=== PATIENT | male | born 1955 | race Caucasian/White ===

== ENCOUNTER → 2016-07-29 | Outpatient (CLI) | payer OTHER | LOC: FIMAGING 07:09 | PROVIDERS: ATTEND Internal Medicine Nephrology | DX: I15.0 Renovascular hypertension (principal); R94.4 Abnormal results of kidney function studies ==

== ENCOUNTER → 2017-06-15 | Outpatient (CLI) | payer OTHER | LOC: BMCIMAGING 14:03 | PROVIDERS: ATTEND Physician Assistant | DX: M25.851 Other specified joint disorders, right hip (principal); M25.852 Other specified joint disorders, left hip ==

== ENCOUNTER 2017-08-22 10:02 | Emergency (ER) | payer OTHER ==
[2017-08-22] MEDS ORDERED: TDAP ADULT 0.5 ML INJ (BOOSTRIX) IM ONE (10:28)
--- NOTE | 2017-08-22 10:28 | EDPHY ---
General Time Seen by Provider: 08/22/17 10:13 Narrative: CHIEF COMPLAINT: Thumb laceration HISTORY OF PRESENT ILLNESS: Patient complains of accidental laceration to the left thumb. This happened within the past 2 hr while working with metal from a gutter. He accidentally cut the base of the left thumb. Moderate bleeding. Minimal pain. No numbness , tingling or weakness. No difficulty bending or straightening the finger. No injury elsewhere. Questionable tetanus status. No other associated complaints or modifying factors. Right-hand dominant TIME OF INJURY: Less than 1 hr prior to arrival TETANUS STATUS: Uncertain MEDICAL/SURGICAL/SOCIAL HISTORY: Primary care physician is Dr. Donnelly REVIEW OF SYSTEMS: Ten systems reviewed and are negative unless otherwise noted in the HPI EXAMINATION General Appearance: Alert, no distress Head: normocephalic, atraumatic Cardiovascular: Pulses normal throughout. Symmetric radial pulses 2+. Brisk cap refill all thumb. Neurological: A&O, sensory symmetric, bad credit collector strength symmetric. Skin: Warm and dry, no rash. 4 cm laceration, v-shaped at the base of the left thumb over the thenar eminence. Extremities: Tenderness of the left thumb over the laceration. There is full flexion, extension, opposition, abduction and adduction. Neurovascular intact distally DIFFERENTIAL DIAGNOSES: Including but not limited to thumb laceration, complex down laceration, laceration with tendon injury, laceration foreign body MDM: 10:15 a.m. Complex left thumb laceration over the thenar eminence. No tendon injury. No foreign body. He is neurovascular intact. I have anesthetize the area. Proceed with irrigation closure. No indication for x-ray. 10:45 a.m. Complex lip laceration that has been repaired without difficulty. Good approximation. No tendon injury. No foreign body. Brisk cap refill postprocedure. Wound care discussed. Splint has been placed. ED precautions discussed. Return here in 7-10 days for suture removal. Discharged stable condition. PROCEDURE: Laceration repair Consent: Verbal Location: Left thumb thenar eminence Length of repair: 4 cm total Complexity: Complex Layer involvement: Single Anesthesia: Local. 0.5% Marcaine plain, 8 mL Irrigation: Extensive Debridement: None Procedure description: Following good anesthesia, the wound was copiously irrigated. Wound bed was explored with a sterile glove, and there is no foreign body noted. No injury to the underlying tendon or musculature. Wound borders were approximated well with good hemostasis. Tolerated well without complication. Suture/Staple material: 5-0 Ethilon, 7 simple interrupted sutures Wound care: Routine as discussed Suture/Staple removal: 7-10 Days SUPERVISION: This patient was independently evaluated without direct involvement of or examination by the attending physician. ED Precautions: Worsening pain. Erythema, edema, cyanosis, pallor, paresthesia or anesthesia. - History Smoking Status: Never smoked - Objective Vital Signs: Initial Vital Signs Temperature (C) 97.5 F 08/22/17 10:06 Heart Rate 65 08/22/17 10:06 Respiratory Rate 17 08/22/17 10:06 Blood Pressure 133/65 H 08/22/17 10:06 O2 Sat (%) 96 08/22/17 10:06 O2 Delivery Mode Room Air Allergies/Adverse Reactions: No Known Allergies Allergy (Unverified 08/22/17 10:05) Home Medications: Medication Instructions Recorded 2 Htn Meds 08/22/17 Levothyroxine 08/22/17 Medications Given: Discontinued Medications Diphtheria/Tetanus/Acell Pertussis (Boostrix) 0.5 ml IM .ONCE ONE Stop: 08/22/17 10:29 Last Admin: 08/22/17 10:47 Dose: 0.5 ml Departure - Departure Disposition: Home, Routine, Self-Care Clinical Impression: Laceration of thumb, left, complicated Qualifiers: Encounter type: initial encounter Qualified Code(s): S61.012A - Laceration without foreign body of left thumb without damage to nail, initial encounter Condition: Good Instructions: Care For Your Stitches (ED), Laceration (ED) Additional Instructions: 1. Keep your splint and dressing in place for 48 hr. 2. Removed the dressing in 48 hr, wash with antibacterial soap and apply thin layer bacitracin. Replace your splint and wear the splint for a total of 5 days 3. ED precautions for worsening pain, numbness, tingling, fever, warmth or purulence 4. Return here in 7-10 days for suture removal Referrals: Misael Donnelly MD [Primary Care Provider] - As per Instructions Physician,Emergency DeptMD [Medical Doctor] - As per Instructions (7-10 days for suture removal) Stand Alone Forms: Work Limited Duty, Work Excuse
[2017-08-22 12:01] VITALS: BP 133/75
== END 2017-08-22 12:01 | disposition home or self-care (01) ==
PROC: 0HQGXZZ Repair Left Hand Skin, External Approach (ICD-10-PCS; principal; 2017-08-22)
DX: S61.012A Laceration without foreign body of left thumb without damage to nail, initial encounter (principal); W45.8XXA Other foreign body or object entering through skin, initial encounter; Z23 Encounter for immunization

== ENCOUNTER → 2017-10-31 | Outpatient (CLI) | payer OTHER | LOC: BMCIMAGING 11:53 | PROVIDERS: ATTEND Family Medicine | DX: S60.455A Superficial foreign body of left ring finger, initial encounter (principal) ==

== ENCOUNTER → 2017-12-15 | Outpatient (CLI) | payer OTHER | LOC: BMCIMAGING 09:43 | PROVIDERS: ATTEND Orthopaedic Surgery | DX: M25.551 Pain in right hip (principal) ==

== ENCOUNTER → 2018-06-22 | Outpatient (CLI) | payer OTHER | LOC: BMCIMAGING 13:57 | PROVIDERS: ATTEND Orthopaedic Surgery | DX: M25.552 Pain in left hip (principal) ==

== ENCOUNTER → 2018-06-22 | Outpatient (CLI) | payer OTHER | LOC: BMCIMAGING 11:25 | PROVIDERS: ATTEND Internal Medicine | DX: J40 Bronchitis, not specified as acute or chronic (principal) ==